=== PATIENT | male | born 1965 | race Caucasian/White ===

== ENCOUNTER → 2017-11-08 | Outpatient (CLI) | payer BC ==
[2017-11-08 09:50] LABS: ALT 51 U/L (21-72); AST 33 U/L (17-59); Cholesterol 236 mg/dL (<200); Creatine Kinase 185 U/L (55-170); HDL Cholesterol 53 mg/dL (40-60); LDL Cholesterol,Calculated 159 mg/dL (0-99); Triglycerides 118 mg/dL (<150)
== END | disposition home or self-care (01) ==
LOC: LABWHC1 08:57
PROVIDERS: ATTEND Family Medicine
DX: E78.00 Pure hypercholesterolemia, unspecified (principal)
CPT/HCPCS: 36415; 80061; 82550; 84450; 84460

== ENCOUNTER → 2018-10-24 | Outpatient (CLI) | payer BC ==
--- NOTE | 2018-10-24 09:28 | MR ---
EXAMINATION TYPE: MR shoulder LT wo con DATE OF EXAM: 10/24/2018 COMPARISON: None HISTORY: Pain in left shoulder TECHNIQUE: Multiplanar, multisequence imaging of the left shoulder is performed without contrast. FINDINGS: Rotator Cuff: There is abnormal increased signal within the rotator cuff tendon, partial full-thickne ss tear is present of the supraspinatus tendon at the level of insertion. Fluid signal present in the subacromial subdeltoid bursa. Acromioclavicular Joint: Arthropathy present in the acromioclavicular joint causing mass effect on th e musculotendinous junction of supraspinatus. Distal acromial spur is present. Glenohumeral Joint: Intact Labrum: Increased signal within the glenoid labrum be degenerative. Question a para labral cyst axial image 4, coronal image 14, difficult to exclude a small degenerative tear at the posterior and labru m with para labral cyst. Biceps Tendon: The long head of biceps is in normal location within bicipital groove. Fluid signal is present along the long head biceps tendon Bone marrow signal: Pseudocysts present within the humeral head. Probable geode present within the ac romion. There is remodeling of the acromion. Other: No additional significant abnormality is appreciated. IMPRESSION: Partial rotator cuff tear, correlate for impingement with distal acromial spur, arthropathy present a t the acromioclavicular joint.
== END | disposition home or self-care (01) ==
LOC: RADMRIMAIN 07:06
PROVIDERS: ATTEND Orthopaedic Surgery
DX: M75.111 Incomplete rotator cuff tear or rupture of right shoulder, not specified as traumatic (principal)

== ENCOUNTER → 2019-05-25 | Outpatient (CLI) | payer BC ==
--- NOTE | 2019-05-25 22:13 | MR ---
EXAMINATION TYPE: MR knee RT wo con DATE OF EXAM: 05/25/2019 COMPARISON: Outside radiographs 05/08/2019 HISTORY: 53-year-old male Pain in right knee TECHNIQUE: Multiplanar, multisequence imaging of the right knee is performed without IV contrast. FINDINGS: ACL, PCL, MCL, and LCL complex appear intact. Complex tear posterior horn extending into the body of the medial meniscus. Mild diffuse thinning of medial compartment articular cartilage volume. Subtle obliquely oriented signal within the anterior horn of the lateral meniscus contacting the tibi al articular surface. Marginal spurring within the lateral compartment with mild diffuse thinning of articular cartilage. Evaluation of the patellofemoral compartment shows moderate to severe focal irregular cartilage loss along the inferior trochlear groove measuring 1.4 craniocaudal and 1.1 cm wide reactive underlying ma rrow signal changes are present. Mild irregular cartilage loss within the mid patella with marginal spurring. Extensor mechanism is intact with intermediate signal at the quadriceps insertion. Physiologic joint fluid. There are small anterior and posterior loose bodies measuring up to 4 mm. Normal popliteal artery anatomy is normal. No suspicious bone marrow replacement. Some mild generalized nonspecific anterior subcutaneous soft tissue swelling IMPRESSION: 1. Complex tear posterior horn extending into the body of the medial meniscus. 2. Findings suspicious for a subtle oblique tear anterior horn lateral meniscus. 3. Mild diffuse thinning of articular cartilage in the medial and lateral compartments. More moderate focal irregular cartilage loss along the inferior mid trochlear groove within the patellofemoral com partment with small anterior and posterior loose bodies measuring up to 4 mm. 4. Mild insertional quadriceps tendinosis.
== END | disposition home or self-care (01) ==
LOC: RADMRIMAIN 11:41
PROVIDERS: ATTEND Orthopaedic Surgery
DX: S83.231A Complex tear of medial meniscus, current injury, right knee, initial encounter (principal); M94.8X8 Other specified disorders of cartilage, other site; M67.863 Other specified disorders of tendon, right knee

== ENCOUNTER → 2019-07-15 | Outpatient (CLI) | payer BC ==
[2019-07-15 09:08] LABS: Basophils # (A) 0.1 k/uL (0-0.2); Basophils % (A) 1 %; Eosinophils # (A) 0.2 k/uL (0-0.7); Eosinophils % (A) 3 %; HCT 44.7 % (39.0-53.0); HGB 15.3 gm/dL (13.0-17.5); Lymphocytes # (A) 1.7 k/uL (1.0-4.8); Lymphocytes % (A) 20 %; MCH 32.5 pg (25.0-35.0); MCHC 34.3 g/dL (31.0-37.0); MCV 94.8 fL (80.0-100.0); Mean Platelet Volume 6.1; Monocytes # (A) 0.6 k/uL (0-1.0); Monocytes % (A) 7 %; Neutrophils # (A) 5.4 k/uL (1.3-7.7); Neutrophils % (A) 64 %; Platelet Count 254 k/uL (150-450); RBC 4.72 m/uL (4.30-5.90); RDW 12.6 % (11.5-15.5); WBC 8.4 k/uL (3.8-10.6)
[2019-07-15 09:21] LABS: Potassium 4.6 mmol/L (3.5-5.1)
== END | disposition home or self-care (01) ==
LOC: LABPAT 08:13
PROVIDERS: ATTEND Orthopaedic Surgery
DX: Z01.818 Encounter for other preprocedural examination (principal); M23.91 Unspecified internal derangement of right knee; M75.42 Impingement syndrome of left shoulder; Z01.812 Encounter for preprocedural laboratory examination
CPT/HCPCS: 80051; 85025; 93005

== ENCOUNTER 2019-07-29 07:01 | Day surgery (SDC) | payer BC ==
[2019-07-27 16:11] VITALS: BMI 36.6
--- NOTE | 2019-07-28 14:56 | HP ---
HISTORY AND PHYSICAL REASON FOR ADMISSION: Surgery is scheduled for 07/29/2019 Alex Taveras is a 53-year-old patient seen with progressive right knee pain. We discussed options for treatment. He elected to proceed with right knee arthroscopy. Consent was obtained. PAST MEDICAL HISTORY: Hypertension, hyperlipidemia, asthma. PAST SURGICAL HISTORY: Noncontributory. DAILY MEDICATIONS: 1. Omeprazole. 2. Simvastatin. 3. Xolair. 4. Symbicort. ALLERGIES: None. SOCIAL HISTORY: He smokes one pack of cigarettes daily. PHYSICAL EXAMINATION: Evaluation of the right knee: Range of motion is zero to 130. Mild effusion. Tenderness in the medial joint line. Positive medial Sofie's. Ligaments are stable. Hip rotation without pain. Distal neurovascular exam is intact. RADIOGRAPHS: Radiographs of the right knee revealed moderate osteoarthritis. MRI of the right knee revealed medial and lateral meniscal tears. IMPRESSION: 1. Internal derangement of the right knee with medial and lateral meniscal tears. 2. Hypertension. 3. Hyperlipidemia. 4. Tobacco use. PLAN: Right knee arthroscopy with partial meniscectomy and debridement. MMODL / IJN: [id number] /
[~2019-07-29 07:01] MED LIST: ceFAZolin 3 GM in SODIUM CHLORIDE 0.9% 100 ML IVPB ONE
[2019-07-29] MEDS ORDERED: DEXAMETHASONE SOD PHOSPHATE 10 MG/ML 1 ML VIAL IV ONE (07:11)
[2019-07-29] MEDS ORDERED: HYDROmorphone 0.5 MG/0.5 ML SYRINGE IVP PRN (07:11)
[2019-07-29] MEDS ORDERED: MIDAZOLAM 2 MG/2 ML VIAL IV PRN (07:11)
[2019-07-29] MEDS ORDERED: SCOPOLAMINE 1.5MG/72HR PATCH TRANSDERM ONE (07:11)
[2019-07-29] MEDS ORDERED: ONDANSETRON 4 MG/2 ML VIAL IVP ONE (07:11)
[2019-07-29] MEDS ORDERED: LACTATED RINGERS 1,000 ML IV SCH (07:11)
[2019-07-29] MEDS ORDERED: LIDOCAINE 1% 20 ML VIAL (10MG/ML) FOR IV START INTRADERMA PRN (07:11)
[2019-07-29 07:30] VITALS: RESP 16
[2019-07-29] MEDS ORDERED: BUPIVACAINE (PF) 0.25% 30 ML VIAL SQ ONE (08:18)
[2019-07-29] MEDS ORDERED: IV FLUID CONTINUATION 1,000 ML IV ONE (08:37)
[2019-07-29 08:42] VITALS: TEMP 97.4
--- NOTE | 2019-07-29 09:03 | P.OP ---
Date of Procedure: 07/29/19 Preoperative Diagnosis: Internal derangement right knee Postoperative Diagnosis: 1. Tear medial meniscus right knee 2. Grade 2 chondromalacia medial femoral condyle right knee 3. Grade 2 chondromalacia patella right knee 4. Reactive synovitis medial, lateral and suprapatellar compartments right knee Procedure(s) Performed: 1. Arthroscopic partial medial meniscectomy right knee 2. Arthroscopic chondroplasty medial femoral condyle right knee 3. Arthroscopic chondroplasty patella right knee 4. Arthroscopic partial synovectomy medial, lateral and suprapatellar compartments right knee Anesthesia: GIANCARLOA, local Surgeon: Harsha Tena Estimated Blood Loss (ml): 7 Pathology: none sent Condition: stable Disposition: PACU Indications for Procedure: 53-year-old patient seen with progressive right knee pain. After treatment options were discussed, he elected to proceed with arthroscopy. Operative Findings: See description of procedure Description of Procedure: Patient was taken to the operative suite. Patient underwent a general anesthetic by the department of anesthesia. Patient was given preoperative antibiotics. The right lower extremity was placed in a well-padded arthroscopic leg ivan. The right leg was prepped and draped in the normal sterile orthopedic fashion. A lateral parapatellar and suprapatellar incision was made. Trochars were inserted. Arthroscopy was initiated. Suprapatellar pouch revealed diffuse thick reactive synovitis. The patellofemoral joint appeared to articulate congruently. There was grade 2 chondromalacia of the patella with some osteochondral flap tears present. The scope was guided into the medial gutter. No loose bodies or plica were identified. The scope was then guided into the medial compartment. A medial parapatellar incision was made. Trocar inserted followed by probe. There was a complex tear involving the posterior horn medial meniscus which did extend into the midbody. There was an area of grade 2 chondromalacia weightbearing surface medial femoral condyle with some osteochondral flap tears present. There was thick reactive synovitis anteriorly. I performed a partial medial meniscectomy getting down to stable tissue. I performed a chondroplasty of the medial femoral condyle down to stable tissue. I performed a partial synovectomy decompressing the thick reactive synovitis. The residual meniscus was probed and found to be stable. The residual osteochondral surface was stable. There was good decompression of the synovitis. Scope and probe were then guided into the intercondylar notch. Cruciates were identified, probed and found to be stable. The scope and probe were then guided into lateral compartment. Lateral meniscus was probed and found to be stable. There was some mild fraying along the posterior horn area. There were mild grade 1 chondromalacia changes of the tibial plateau. There was thick reactive synovitis anteriorly. I debrided that frayed area of meniscus with a motorized shaver. I performed a partial synovectomy decompressing the thick reactive synovitis. There appeared be good decompression of the synovitis. The scope was in guided back into the suprapatellar compartment. I introduced a motorized shaver into the suprapatellar compartment. I debrided some piecemeal fragments of meniscus I encountered. I performed a chondroplasty of the patella. I performed a partial synovectomy decompressing the thick reactive synovitis. The shaver was removed. There was good decompression of synovitis. The residual osteochondral surface of patella was stable. I took one more look on the entire knee, no residual debris. Instruments were now removed from the joint. The joint was infiltrated with .25% Marcaine. Steri- Strips were applied to the portal sites. Sterile dressings were applied. The patient was placed into a BERTRAM hose. No tourniquet was utilized. The patient was awakened, transferred to a bed and taken to recovery stable satisfactory condition.
[2019-07-29 09:37] VITALS: BP 126/79; PULSE 75
== END 2019-07-29 09:59 | disposition home or self-care (01) ==
LOC: OR 07:01
PROVIDERS: ATTEND Orthopaedic Surgery
DX: M23.221 Derangement of posterior horn of medial meniscus due to old tear or injury, right knee (principal); M23.251 Derangement of posterior horn of lateral meniscus due to old tear or injury, right knee; M65.861 Other synovitis and tenosynovitis, right lower leg; M22.41 Chondromalacia patellae, right knee; E78.5 Hyperlipidemia, unspecified; I10 Essential (primary) hypertension; F17.210 Nicotine dependence, cigarettes, uncomplicated; J44.9 Chronic obstructive pulmonary disease, unspecified; E11.9 Type 2 diabetes mellitus without complications; M19.90 Unspecified osteoarthritis, unspecified site; K21.9 Gastro-esophageal reflux disease without esophagitis; Z79.51 Long term (current) use of inhaled steroids; Z79.899 Other long term (current) drug therapy; Z90.49 Acquired absence of other specified parts of digestive tract; Z98.890 Other specified postprocedural states
CPT/HCPCS: 29880; J1100; J0690; J2405

== ENCOUNTER 2019-08-26 06:29 | Day surgery (SDC) | payer BC ==
[2019-08-24 15:22] VITALS: BMI 32.5
--- NOTE | 2019-08-25 13:55 | HP ---
HISTORY AND PHYSICAL DATE OF SERVICE: 08/26/2019 Jose Antonio Taveras is a 53-year-old patient seen with progressive left shoulder pain. We discussed options for treatment. He elected to proceed with arthroscopy. Consent regarding the procedure was obtained. PAST MEDICAL HISTORY: Hyperlipidemia, asthma, gastroesophageal reflux disease. PAST SURGICAL HISTORY: None. DAILY MEDICATIONS: 1. Ibuprofen. 2. Omeprazole. 3. Simvastatin. 4. Symbicort. 5. Xolair. ALLERGIES: None. SOCIAL HISTORY: Does smoke 1 pack of cigarettes daily. PHYSICAL EVALUATION OF THE LEFT SHOULDER: Flexion 150, abduction 120, external rotation is 40 with pain and weakness. Tenderness along the anterior lateral acromion rotator cuff insertion site. Impingement is positive at 90. His distal neurovascular exam is intact. RADIOGRAPHS LEFT SHOULDER: Type 2 anterior acromion, acromioclavicular joint osteoarthritis. MRI of the left shoulder, rotator cuff tear, acromioclavicular joint osteoarthritis and evidence for impingement. IMPRESSION: 1. Left shoulder impingement with rotator cuff tear. 2. Left shoulder acromioclavicular joint osteoarthritis. 3. Hyperlipidemia. 4. Tobacco use. PLAN: Left shoulder arthroscopy with subacromial decompression, rotator cuff repair, Jean procedure and debridement. MMODL / IJN: [id number] /
[~2019-08-26 06:29] MED LIST changes: +DEXAMETHASONE SOD PHOSPHATE 10 MG/ML 1 ML VIAL IV ONE; +HYDROmorphone 0.5 MG/0.5 ML SYRINGE IVP PRN; +KETOROLAC 30 MG/ML 1 ML VIAL ONE; +LACTATED RINGERS 1,000 ML IV SCH; +LIDOCAINE 1% INJ 10MG/ML (20 ML MDV) ONE; +MIDAZOLAM 2 MG/2 ML VIAL IV PRN; +MIDAZOLAM 2 MG/2 ML VIAL ONE; +ONDANSETRON 4 MG/2 ML VIAL IVP ONE; +PROPOFOL 10 MG/ML 20 ML VIAL IV ONE; +SCOPOLAMINE 1.5MG/72HR PATCH TRANSDERM ONE; +SUCCINYLCHOLINE CHLORIDE 100 MG/5 ML SYR IV ONE; -ceFAZolin 3 GM in SODIUM CHLORIDE 0.9% 100 ML IVPB ONE; +fentaNYL (PF) 50 MCG/ML 2 ML AMP ONE
[2019-08-26] MEDS ORDERED: LIDOCAINE 1% 20 ML VIAL (10MG/ML) FOR IV START INTRADERMA ONE (07:01)
[2019-08-26] MEDS ORDERED: fentaNYL (PF) 50 MCG/ML 2 ML AMP IV ONE (07:16)
[2019-08-26] MEDS ORDERED: SUCCINYLCHOLINE CHLORIDE 100 MG/5 ML SYR IV ONE (07:59)
[2019-08-26] MEDS ORDERED: LIDOCAINE 1% INJ 10MG/ML (20 ML MDV) ONE (07:59)
[2019-08-26] MEDS ORDERED: MIDAZOLAM 2 MG/2 ML VIAL ONE (07:59)
[2019-08-26] MEDS ORDERED: PROPOFOL 10 MG/ML 20 ML VIAL IV ONE (07:59)
[2019-08-26] MEDS ORDERED: LACTATED RINGERS 1,000 ML IV ONE (09:33)
--- NOTE | 2019-08-26 09:47 | P.ANPRN ---
Procedure Note - Anesthesia - Nerve Block Performed Left Interscalene Single Time Out Performed: Yes Date of Procedure: 08/26/19 Procedure Start Time: : Procedure Stop Time: : Location of Patient: PreOp Indication: Acute Post-Operative Pain, Requested by Surgeon Specifically requested for management of pain by DrKena: Harsha Tena Sedation Type: Sedate with meaningful contact maintained Preparation: Sterile Prep Position: Supine Catheter: None Needle Types: Pajunk Needle Gauge: 21 Ultrasound used to visualize needle placement: Yes Ultrasound used to observe medication spread: Yes Injectate: 0.5% Ropivacaine (see comment for volume) (20 cc + Decadron 4mg) Blood Aspirated: No Pain Paresthesia on Injection Noted: No Resistance on Injection: Normal Image Stored and Saved: Yes Events: Uneventful and Well Tolerated
[2019-08-26 09:55] VITALS: TEMP 97
--- NOTE | 2019-08-26 09:57 | P.OP ---
Date of Procedure: 08/26/19 Preoperative Diagnosis: Left shoulder impingement Postoperative Diagnosis: 1. Left shoulder rotator cuff tear 2. Left shoulder impingement 3. Left shoulder acromioclavicular joint osteoarthritis 4. Left shoulder partial long head biceps tendon tear 5. Left shoulder superficial superior labral tear Procedure(s) Performed: 1. Left shoulder arthroscopic rotator cuff repair 2. Left shoulder arthroscopic subacromial decompression 3. Left shoulder arthroscopic Jean procedure 4. Left shoulder arthroscopic biceps tenotomy 5. Left shoulder arthroscopic debridement labral tear Implants: 44.75 Arthrex swivel lock anchors Anesthesia: GETA, regional (interscalene block) Surgeon: Harsha Tena Parachute Cushion Installer #1: Tate Gaytan Estimated Blood Loss (ml): 11 Pathology: none sent Condition: stable Disposition: PACU Indications for Procedure: 53-year-old patient seen with progressive left shoulder pain. After treatment options were discussed, he elected to proceed with arthroscopy. Operative Findings: See description of procedure Description of Procedure: Patient underwent an interscalene block by department of anesthesia for postoperative pain management. The patient was then taken to the operative suite. The patient underwent a general anesthetic by the department of anesthesia. The patient was placed into a lateral position and secured. There was appropriate padding of the bony prominence. Left shoulder was then prepped and draped in normal sterile orthopedic fashion. We placed the extremity in 10 pounds of longitudinal traction. A posterior incision was now made for a posterior working portal site. The trocar and cannula were inserted into the glenohumeral joint. Arthroscopy was initiated. Spinal needle was now inserted anteriorly, to ascertain the anterior working portal site. An incision was now made in that area, a trocar was inserted followed by a probe. There was superficial tearing of the superior labrum. There was partial tearing long head biceps tendon with hyperemia. There were grade 1 chondromalacia changes of the glenohumeral joint. No osteochondral tears were present. The remaining labrum appeared stable. I could visualize rotator cuff tear from glenohumeral side. I performed an arthroscopic biceps tenotomy. I debrided the superficial labral tear down to stable labral tissue. The residual labrum was stable. Instruments now removed from glenohumeral joint. Utilizing the posterior working portal site, the trocar and cannula were inserted into the subacromial space. Arthroscopy initiated. I made an incision 2 fingerbreadths lateral to the acromion. I introduced my trocar followed by my ArthroCare ablator. I now began ablating thick subacromial bursal tissue, which exposed the undersurface of the anterior acromion. There was diminished subacromial space. There was a very prominent anterior acromion. A motorized bur was introduced and a subacromial decompression was performed. I also excised so me osteophytes off the inferior aspect of the distal clavicle. The AC joint was visualized and noted to be fairly arthritic. The motorized bur was introduced in the anterior portal site and a Jean procedure was performed without difficulty, decompressing the AC joint nicely. I turned my attention to the rotator cuff. There was a 2.53 cm rotator cuff tear. I debrided the margins getting down to stable tendon tissue. I introduced my motorized bur and abraded the footprint area, getting some petechial bleeding. I now made an accessory portal site off the lateral aspect of the acromion. I punched 2 holes medial for medial row fixation with the assistance of Wu ANTOINE carefully tapping the punch with a mallet as I held the punch and the camera. I now introduced both anchors into the pre-punched holes and Wu ANTOINE tapped them with the mallet as I held anchors and the camera. Wu ANTOINE now screwed the anchors in place a while I held the anchor guide and camera. All 8 limbs of suture were now passed through good bites of rotator cuff tendon. I now punched 2 holes for lateral row fixation again I held the punch and camera while Wu ANTOINE used a mallet to tap in the punch. We now passed sutures through both anchors and individually I introduced the anchors into the pre-punch holes I held the anchor guide in position with one hand holding the camera with the other hand while Wu ANTOINE tensioned the sutures and screwed in the anchors one at a time. All residual suture limbs were now clipped. We had good compression of the tendon along the entire footprint. I injected 1 mL Renyte intra-articular. Instruments now removed from the portal sites. All portal sites were approximated with nylon suture. Sterile dressings were applied followed by a khloe ulder immobilizer. Tate ANTOINE assisted in this complex case. The patient was awakened, transferred to a bed, and taken to recovery in stable condition.
[2019-08-26 11:14] VITALS: BP 137/93; PULSE 76; RESP 18
== END 2019-08-26 12:05 | disposition home or self-care (01) ==
LOC: OR 06:29
PROVIDERS: ATTEND Orthopaedic Surgery
DX: M75.102 Unspecified rotator cuff tear or rupture of left shoulder, not specified as traumatic (principal); M19.012 Primary osteoarthritis, left shoulder; M75.42 Impingement syndrome of left shoulder; S46.112A Strain of muscle, fascia and tendon of long head of biceps, left arm, initial encounter; S43.432A Superior glenoid labrum lesion of left shoulder, initial encounter; E78.5 Hyperlipidemia, unspecified; J45.909 Unspecified asthma, uncomplicated; K21.9 Gastro-esophageal reflux disease without esophagitis; M94.212 Chondromalacia, left shoulder; Z79.51 Long term (current) use of inhaled steroids; Z79.1 Long term (current) use of non-steroidal anti-inflammatories (NSAID); Z79.899 Other long term (current) drug therapy; Z87.891 Personal history of nicotine dependence; X58.XXXA Exposure to other specified factors, initial encounter
CPT/HCPCS: 64415; 76942; 29824; 29826; 29827; C1713 ×2; Q4212; J2250 ×2; J1100; J0690; J2405; J2001 ×2; J3010 ×2; J1885; J0330 ×2; J2704 ×2

== ENCOUNTER → 2022-08-21 | Outpatient (CLI) | payer BC ==
--- NOTE | 2022-08-21 15:54 | MR ---
EXAMINATION TYPE: MR knee LT wo con DATE OF EXAM: 08/21/2022 COMPARISON: Outside left knee x-ray August 07, 2022 HISTORY: Pain and swelling left knee for 2 years. History of prior surgery. TECHNIQUE: Multiplanar, multisequence images of the knee is performed without IV contrast. FINDINGS: MEDIAL MENISCUS: Medial extrusion of medial meniscus on coronal images with abnormal signal extending into the central body. Posterior horn has a truncated appearance with abnormal signal superiorly ext ending to articular surface. LATERAL MENISCUS: Anterior and posterior horns are intact without tear. CRUCIATE LIGAMENTS: The anterior and posterior cruciate ligaments are intact and unremarkable. COLLATERAL LIGAMENTS: The medial collateral ligament and lateral collateral ligament complex are inta ct. Mild fluid signal surrounds the medial collateral ligament. Thickening and increased signal in pr oximal lateral collateral ligament with surrounding fluid. EXTENSOR MECHANISM: Visualized quadriceps and patellar tendons are intact. EFFUSION: Moderate to large size suprapatellar joint effusion. POPLITEAL CYST: No popliteal/mckinney cyst. Ill-defined fluid in the the popliteal space surrounding an d extending through the deeper muscles extends inferiorly. TRICOMPARTMENT SPACES: Moderate tricompartment joint space loss and spurring. CARTILAGE: Fissuring and cartilaginous loss along the posterior patellar pole. More prominent cartila ginous loss medial tibiofemoral compartment. BONE MARROW SIGNAL: Heterogeneous diminished T1 and increased T2 signal involving the medial aspect o f the medial tibial plateau. Areas of heterogeneous increased T2 signal along the posterior patella s agittal image 18. OTHER: No additional significant abnormality is appreciated. IMPRESSION: 1. Tricompartment degenerative changes that are [id number] medial tibiofemoral compartment as detailed above. At least moderate findings in the patellofemoral compartment. 2. Moderate to large-sized suprapatellar joint effusion. 3. Full-thickness tear posterior horn of medial meniscus extending into the central body. 4. Mild MCL sprain injury. Moderate LCL sprain injury. 5. Ill-defined fluid surrounding the deep popliteal muscles extending inferiorly could reflect produc t of ruptured popliteal cyst. 6. Abnormal osseous contusion and/or bone marrow edema with possible subchondral injury involving the medial aspect of the medial tibial plateau site of most prominent joint space narrowing.
== END | disposition home or self-care (01) ==
LOC: RADMRIMAIN 07:01
PROVIDERS: ATTEND Orthopaedic Surgery
DX: S83.242A Other tear of medial meniscus, current injury, left knee, initial encounter (principal); S80.02XA Contusion of left knee, initial encounter; M17.12 Unilateral primary osteoarthritis, left knee; M25.462 Effusion, left knee; M71.22 Synovial cyst of popliteal space [Baker], left knee

== ENCOUNTER → 2022-09-11 | Outpatient (CLI) | payer BC ==
[2022-09-11 14:34] LABS: Basophils % (A) 1.4 %; Eosinophils # (A) 0.23 X 10*3/uL (0.04-0.35); Eosinophils % (A) 3.3 %; HCT 48.2 % (39.6-50.0); HGB 15.9 g/dL (13.0-17.0); Immature Grans, Automated 0.4 %; Lymphocytes % (A) 24.2 %; MCH 31.9 pg (27.0-32.0); MCV 96.6 fL (80.0-97.0); Mean Platelet Volume 10.1 fL (9.5-12.2); Monocytes # (A) 0.71 X 10*3/uL (0.20-1.00); Monocytes % (A) 10.1 %; NRBC Per 100 WBC 0 /100 WBCS (0.0-0.0); Neutrophils # (A) 4.25 X 10*3/uL (1.80-7.70); Neutrophils % (A) 60.6 %; Platelet Count 240 X 10*3/uL (140-440); RBC 4.99 X 10*6/uL (4.40-5.60); RDW 12.7 % (11.5-14.5); WBC 7.02 X 10*3/uL (4.50-10.00)
[2022-09-11 14:42] LABS: Anion Gap 9.7 mmol/L (10.00-18.00); Carbon Dioxide 26.9 mmol/L (20.0-27.5); Potassium 5.1 mmol/L (3.5-5.5)
== END | disposition home or self-care (01) ==
LOC: LABPAT 10:47
PROVIDERS: ATTEND Orthopaedic Surgery
DX: Z01.812 Encounter for preprocedural laboratory examination (principal); M23.92 Unspecified internal derangement of left knee
CPT/HCPCS: 36415; 80051; 85025; 93005